=== PATIENT | male | born 1995 | race Caucasian/White ===

== ENCOUNTER 2020-05-08 14:32 | Emergency (ER) | payer SELFPAY ==
[2020-05-08 15:24] VITALS: BP 137/80
[2020-05-08] MEDS ORDERED: MORPHINE 4 MG/1 ML INJ IV ONE (15:34)
[2020-05-08] MEDS ORDERED: DIPHtheria,PERTUSSIS(ACELL),TETANUS VACCINE/PF 0.5 ML VIAL IM ONE (15:34)
[2020-05-08] MEDS ORDERED: ONDANSETRON 4 MG/2 ML INJ IV ONE (15:34)
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
--- NOTE | 2020-05-08 16:16 | XRay Report ---
LEFT FEMUR 5 IMAGES INDICATION: possible nail in upper left leg. COMPARISON: No relevant prior imaging study available. FINDINGS: Within the anterior distal thigh there is a nail that is slightly bent. This does not approach the un derlying distal femur. On the lateral view, the head of the nail is at a depth of approximately 1 cm. No additional foreign bodies. IMPRESSION: 1. Nail in the anterior distal left thigh. Signer Name: Jarrett Renteria MD Signed: 05/08/2020 4:12 PM Workstation Name: [id number]
[2020-05-08] MEDS ORDERED: cephALEXin 500 MG CAP PO ONE (16:32)
[2020-05-08] MEDS ORDERED: oxyCODONE /ACETAMINOPHEN 5-325MG TAB PO ONE (16:32)
== END 2020-05-08 17:13 | disposition home or self-care (01) ==
LOC: ED 14:32
DX: S71.132A Puncture wound without foreign body, left thigh, initial encounter (principal); Z79.899 Other long term (current) drug therapy; W45.8XXA Other foreign body or object entering through skin, initial encounter; Y93.89 Activity, other specified; Y92.89 Other specified places as the place of occurrence of the external cause; Y99.8 Other external cause status
CPT/HCPCS: 10120; 73552; 90471; 90715; 99283; J0690

== ENCOUNTER 2020-05-21 12:47 | Emergency (ER) | payer SELFPAY ==
[2020-05-21 13:46] VITALS: BP 111/65
== END 2020-05-21 17:53 ==
LOC: ED 12:47
DX: Z00.8 Encounter for other general examination (principal); Z53.21 Procedure and treatment not carried out due to patient leaving prior to being seen by health care provider